=== PATIENT | female | born 2000 | race Caucasian/White ===

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

== ENCOUNTER 2018-03-16 09:08 | Emergency (ER) | payer MEDICAID ==
[~2018-03-16] VITALS: Ht 152.4 cm; Wt 63.0 kg
[2018-03-16 09:13] VITALS: Ht 152.4 cm; Wt 63.0 kg
[2018-03-16 10:05] VITALS: BP 114/72
== END 2018-03-16 10:05 | disposition home or self-care (01) ==
LOC: ED 09:08
DX: S16.1XXA Strain of muscle, fascia and tendon at neck level, initial encounter (principal); X58.XXXA Exposure to other specified factors, initial encounter; Y93.89 Activity, other specified; Y92.89 Other specified places as the place of occurrence of the external cause; Y99.8 Other external cause status
CPT/HCPCS: J1885